=== PATIENT | female | born 1990 | race Two or more races ===

== ENCOUNTER 2020-12-18 16:40 | Emergency (ER) | payer MEDICAID, OTHER ==
[~2020-12-18] VITALS: Ht 160 cm; Wt 83.9 kg
[2020-12-18 17:01] VITALS: BP 140/90
[2020-12-18] MEDS ORDERED: MORPHINE SULFATE INJ 2 MG/ML DISP.SYRIN IV ONE (18:00)
[2020-12-18] MEDS ORDERED: ONDANSETRON HCL/PF - ER 4 MG/2 ML VIAL IV ONE (18:00)
--- NOTE | 2020-12-18 18:07 | NUR ---
pt eloped. medication ordered not given.
== END 2020-12-18 18:08 | disposition home or self-care (01) ==
LOC: ER 16:43
DX: L76.32 Postprocedural hematoma of skin and subcutaneous tissue following other procedure (principal); Z98.890 Other specified postprocedural states
CPT/HCPCS: J2405